=== PATIENT | female | born 1995 | race American Indian/Alaskan Native ===

== ENCOUNTER 2017-08-16 13:04 | Emergency (ER) | payer MEDICAID ==
[2017-08-16 13:35] VITALS: BP 115/76; PULSE 91; RESP 20; TEMP 99.5; O2SAT 100
--- NOTE | 2017-08-16 13:44 | C.PDOC ---
History Of Present Illness 22-year-old female, presents to the emergency department c/o sore throat and subjective fever, sore throat since last night. Patient states tonsils are swollen. She denies any medical Hx or allergies. She notes associated dizziness. Denies headache, shortness of breath, chest pain. No other complaints at this time. Time Seen by Provider: 08/16/17 13:38 Chief Complaint (Nursing): ENT Problem History Per: Patient History/Exam Limitations: no limitations Past Medical History Reviewed: Historical Data, Nursing Documentation, Vital Signs Vital Signs: Last Vital Signs Temp 99.5 F 08/16/17 13:33 Pulse 91 H 08/16/17 13:33 Resp 20 08/16/17 13:33 BP 115/76 08/16/17 13:33 Pulse Ox 100 08/16/17 13:56 - Medical History PMH: Asthma Family History: States: No Known Family Hx - Social History Hx Alcohol Use: No Hx Substance Use: No Review Of Systems Constitutional: Positive for: Fever ENT: Positive for: Throat Pain Cardiovascular: Negative for: Chest Pain, Palpitations Respiratory: Negative for: Shortness of Breath Gastrointestinal: Negative for: Vomiting Neurological: Negative for: Weakness, Numbness, Headache, Dizziness Physical Exam - Physical Exam Appears: Non-toxic, No Acute Distress Skin: Warm, Dry, No Rash Head: Atraumatic, Normacephalic Eye(s): bilateral: Normal Inspection, PERRL Oral Mucosa: Moist Tongue: No Swelling, No Lesions Lips: No Swelling Throat: Exudate (tonsils are edematous, symmetric. ), No Drooling (handling secrections well), Other (uvula midline, no trismus) Neck: Normal ROM, Supple Chest: Symmetrical Cardiovascular: Rhythm Regular, No Murmur Respiratory: Normal Breath Sounds, No Accessory Muscle Use Extremity: Normal ROM Neurological/Psych: Oriented x3, Normal Speech ED Course And Treatment O2 Sat by Pulse Oximetry: 100 (on RA) Pulse Ox Interpretation: Normal Disposition - Disposition Disposition: HOME/ ROUTINE Disposition Time: 14:21 Condition: STABLE Forms: [facility] (Cape Verdean) - Clinical Impression Clinical Impression: Strep pharyngitis - Scribe Statement The provider has reviewed the documentation as recorded by the Scribe (Delaney Yo) All medical record entries made by the Scribe were at my direction and personally dictated by me. I have reviewed the chart and agree that the record accurately reflects my personal performance of the history, physical exam, medical decision making, and the department course for this patient. I have also personally directed, reviewed, and agree with the discharge instructions and disposition.
[2017-08-16] MEDS ORDERED: Dexamethasone 4 mg/1 ml ONE (13:59)
== END 2017-08-16 14:31 | disposition home or self-care (01) ==
LOC: C.ER 13:04
DX: J02.0 Streptococcal pharyngitis (principal)
CPT/HCPCS: 87430; 96372; 99282; J1100; J1885

== ENCOUNTER 2017-10-05 17:16 | Emergency (ER) | payer MEDICAID ==
[2017-10-05 17:24] VITALS: BP 131/75; PULSE 76; RESP 18; TEMP 98.3; O2SAT 99; BMI 19.3
--- NOTE | 2017-10-05 17:38 | C.PDOC ---
History Of Present Illness Patient is a 22 year old AA with no past medical history who presents to the ED with throat pain that has been on-going for a week. Patient states she was treated sore throat last month. Patient admits to odynophagia but denies fever, chills, nausea, vomiting, cough, chest pain, palpitation, SOB. (Leander Gutierrez) History Per: Patient History/Exam Limitations: no limitations Onset/Duration Of Symptoms: Days Severity: Mild Pain Scale Rating Of: 4 Location: throat Recent travel outside of the [place]: No Additional History Per: Patient Time Seen by Provider: 10/05/17 17:19 Chief Complaint (Nursing): ENT Problem Past Medical History - Medical History PMH: Asthma Family History: States: Unknown Family Hx - Social History Hx Tobacco Use: No Hx Alcohol Use: No Hx Substance Use: No - Immunization History Hx Tetanus Toxoid Vaccination: No Hx Influenza Vaccination: No Hx Pneumococcal Vaccination: No Vital Signs: Last Vital Signs Temp 98.3 F 10/05/17 17:23 Pulse 76 10/05/17 17:23 Resp 18 10/05/17 17:23 BP 131/75 10/05/17 17:23 Pulse Ox 99 10/05/17 18:26 Review Of Systems Constitutional: Negative for: Fever, Chills, Weakness Eyes: Negative for: Pain ENT: Positive for: Throat Swelling. Negative for: Ear Pain, Ear Discharge, Nose Pain, Nose Discharge, Nose Congestion Cardiovascular: Negative for: Chest Pain, Palpitations, Light Headedness Respiratory: Negative for: Cough, Shortness of Breath, Hemoptysis, SOB with Excertion, Pleuritic Pain, Wheezing Gastrointestinal: Negative for: Nausea, Vomiting Musculoskeletal: Negative for: Neck Pain Skin: Negative for: Rash Neurological: Negative for: Headache Physical Exam - Physical Exam Appears: No Acute Distress Skin: Normal Color Head: Atraumatic, Normacephalic Eye(s): bilateral: Normal Inspection, PERRL, EOMI Ear(s): Bilateral: Normal Nose: Normal, No Flaring, No Discharge, No Epistaxis, No Deformity, No Tenderness Oral Mucosa: Moist, No Drooling Tongue: Normal Appearing, No Swelling, No Laceration, No Bleeding Lips: Normal Appearing, No Laceration, No Lesions Teeth: Normal Dentition Throat: Erythema, Exudate, No Drooling Neck: Normal ROM, No Midline Cervical Tenderness, No Paracervical Tenderness Lymphatic: Normal Exam Cardiovascular: Rhythm Regular, No Murmur Respiratory: Normal Breath Sounds, No Decreased Breath Sounds, No Accessory Muscle Use, No Rales, No Rhonchi, No Stridor, No Wheezing Gastrointestinal/Abdominal: Normal Exam, Bowel Sounds, Soft, No Tenderness, No Organomegaly, No Mass Extremity: No Tenderness, No Pedal Edema, No Calf Tenderness Neurological/Psych: Oriented x3, Normal Speech ED Course And Treatment O2 Sat by Pulse Oximetry: 99 Medical Decision Making Medical Decision Making: Rapid Strep Antigen: Negative, f/u Throat culture (Leander Gutierrez) 22 yo femae with sore throat x 1 week. no cough. high clinical suspcition for strep despite neg rapid. will treat. (+)exudative pharynx no hot potato voice, neck supple, no drooling, no unilateral swelling. will treat with decadron empiric antibiotics adviseoutpt fu (Emmett Rios) Disposition Discussed With Dr.: Emmett Rios - Disposition Disposition Time: 18:24 - Disposition Referrals: [facility] [Outside] [facility] [Outside] [facility] [Outside] Disposition: HOME/ ROUTINE Condition: GOOD Additional Instructions: Please discharge patient home Please take azithromycin ( Z-pac) for 5 days: 1. Please 2 tablets on day 1 2. Please take 1 tablets day 2, day3, day 4 Please continue to hydrate Please follow up with [facility], Please take care Prescriptions: Azithromycin [Z-Cornel] 250 mg PO DAILY #6 tab Instructions: Sore Throat in Adults Forms: [facility] (Hebrew) - Clinical Impression Clinical Impression: Sore throat
== END 2017-10-05 18:30 | disposition home or self-care (01) ==
LOC: C.ER 17:16
DX: J02.9 Acute pharyngitis, unspecified (principal)
CPT/HCPCS: 87070; 87430; 99283; J8540

== ENCOUNTER 2017-11-11 19:23 | Emergency (ER) | payer MEDICAID ==
[2017-11-11 19:23] VITALS: BMI 19.3
[2017-11-11 19:53] VITALS: BP 135/77; PULSE 80; RESP 14; TEMP 97.7; O2SAT 100
[2017-11-11] MEDS ORDERED: Alum-Mag Hydrox-Simethicone Susp (30 mL) PO STA (19:55)
--- NOTE | 2017-11-11 19:55 | C.PDOC ---
History Of Present Illness 22 year old female presents to the ED complaining of occasional sternal chest discomfort for the past 2 days. Pain is described as positional. Patient denies any SOB, palpitations, dizziness, nausea, vomiting, or diaphoresis. Of note, she works cleaning airplanes. Time Seen by Provider: 11/11/17 19:46 Chief Complaint (Nursing): Chest Pain History Per: Patient History/Exam Limitations: no limitations Onset/Duration Of Symptoms: Days (x2) Current Symptoms Are (Timing): Still Present Past Medical History Reviewed: Historical Data, Nursing Documentation, Vital Signs Vital Signs: Last Vital Signs Temp 97.7 F 11/11/17 19:39 Pulse 80 11/11/17 19:39 Resp 14 11/11/17 19:39 BP 135/77 11/11/17 19:39 Pulse Ox 100 11/11/17 19:55 - Medical History PMH: Asthma Surgical History: No Surg Hx Family History: States: Unknown Family Hx - Social History Hx Tobacco Use: No Hx Alcohol Use: No Hx Substance Use: No - Immunization History Hx Tetanus Toxoid Vaccination: No Hx Influenza Vaccination: No Hx Pneumococcal Vaccination: No Review Of Systems Except As Marked, All Systems Reviewed And Found Negative. Constitutional: Negative for: Sweats Cardiovascular: Positive for: Chest Pain. Negative for: Palpitations Respiratory: Negative for: Shortness of Breath Gastrointestinal: Negative for: Nausea, Vomiting Neurological: Negative for: Dizziness Physical Exam - Physical Exam Appears: No Acute Distress, Other (black female) Skin: Normal Color, Warm, Dry Head: Atraumatic, Normacephalic Eye(s): bilateral: PERRL, EOMI, Other (Pinpoint pupils) Nose: Normal Oral Mucosa: Moist Neck: Normal ROM, Supple Chest: Symmetrical, No Tenderness (or digitally reproducible pain) Cardiovascular: Rhythm Regular, Murmur Respiratory: Normal Breath Sounds, No Rales, No Rhonchi, No Wheezing Gastrointestinal/Abdominal: Soft, No Tenderness, No Distention Extremity: Normal ROM, No Calf Tenderness, No Swelling Pulses: Left Dorsalis Pedis: Normal, Right Dorsalis Pedis: Normal Neurological/Psych: Oriented x3, Normal Speech ED Course And Treatment ECG: Interpreted By Me ECG Rhythm: Sinus Rhythm ECG Interpretation: Normal Rate From EC O2 Sat by Pulse Oximetry: 100 (RA) Pulse Ox Interpretation: Normal Medical Decision Making Medical Decision Making: Impression: GERD vs costochondritis (cleaning planes in awkward reaching positions, which provokes discomfort) pinpoint pupils, asking for work note prior to eval. Pt given maalox plus 30 ml in the ED EKG is normal. Pt is stable for d/c home Disposition Doctor Will See Patient In The: Office Counseled Patient/Family Regarding: Studies Performed, Diagnosis, Need For Followup - Disposition Referrals: [facility] [Outside] Disposition: HOME/ ROUTINE Disposition Time: 19:54 Condition: GOOD Additional Instructions: GERD: pepcid 20 mg at night for suspected GERD maalox 30 cc/one tablespoon 4-5x/day as needed Costochondritis: muscular discomfort, will resolve spontaneously EKG normal. Instructions: Costochondritis, Acid Reflux (Gastroesophageal Reflux Disease), Adult (DC) Forms: [facility] (Thai), Work Excuse - POA Present On Arrival: None - Clinical Impression Clinical Impression: Chest discomfort - Scribe Statement The provider has reviewed the documentation as recorded by the Scribe (Kristie Stern) Provider Attestation: All medical record entries made by the Scribe were at my direction and personally dictated by me. I have reviewed the chart and agree that the record accurately reflects my personal performance of the history, physical exam, medical decision making, and the department course for this patient. I have also personally directed, reviewed, and agree with the discharge instructions and disposition.
[2017-11-11] MEDS ORDERED: Aluminum Hydroxide/Magnesium Hydroxide Susp (30 mL) ONE (19:59)
--- NOTE | 2017-11-15 23:02 | CARD ---
APPROVED REPORT EKG Measurement Heart [id number] <Conclusion> Normal sinus rhythm Septal infarct, age undetermined Abnormal ECG
== END 2017-11-11 20:02 | disposition home or self-care (01) ==
LOC: C.ER 19:23
DX: R07.89 Other chest pain (principal)

== ENCOUNTER 2018-12-11 22:12 | Emergency (ER) | payer MEDICAID ==
[2018-12-11 22:12] VITALS: BMI 19.3
[2018-12-11 22:30] VITALS: BP 137/75; PULSE 83; RESP 20; TEMP 98.4; O2SAT 97
--- NOTE | 2018-12-11 22:39 | C.PDOC ---
History Of Present Illness 23 year old female states 4 days ago she was horse playing with her friend and was slammed on her left hip area. She has been walking on it since then but states the area is painful and sore so she came in to get evaluated. Denies other injury or head injury. Patient took 600 ibuprofen TOUR AGENT. Time Seen by Provider: 12/11/18 22:34 Chief Complaint (Nursing): Lower Extremity Problem/Injury History Per: Patient History/Exam Limitations: no limitations Onset/Duration Of Symptoms: Days (4) Current Symptoms Are (Timing): Still Present Recent travel outside of the [place] States: No - Hip Description Of Injury: Other (Slammed by friend) Past Medical History Reviewed: Historical Data, Nursing Documentation, Vital Signs Vital Signs: Last Vital Signs Temp 98.4 F 12/11/18 22:27 Pulse 83 12/11/18 22:27 Resp 20 12/11/18 22:27 BP 137/75 12/11/18 22:27 Pulse Ox 97 12/11/18 22:27 Primary Care Provider: Brittney Obrien Medical History PMH: Asthma Family History: States: No Known Family Hx - Social History Hx Tobacco Use: No Hx Alcohol Use: No Hx Substance Use: No - Immunization History Hx Tetanus Toxoid Vaccination: No Hx Influenza Vaccination: No Hx Pneumococcal Vaccination: No Review Of Systems Musculoskeletal: Positive for: Other (Left hip pain). Negative for: Back Pain Skin: Negative for: Bruising Neurological: Negative for: Weakness, Numbness Physical Exam - Physical Exam Appears: Well, Non-toxic, No Acute Distress Skin: Normal Color, Warm Head: Atraumatic, Normacephalic Back: No Vertebral Tenderness, No Paraspinal Tenderness Extremity: Normal ROM (x4), Tenderness (left hip area tender, with mild ecchymosis, full rom to hips), No Deformity, No Swelling, Other (Full ROM of left hip joint. Left leg not shortened or externally rotated.) Neurological/Psych: Oriented x3, Normal Speech, Normal Motor, Normal Sensation Gait: Other (Ambulating upright steady gait with limp) ED Course And Treatment O2 Sat by Pulse Oximetry: 97 (Room air) Pulse Ox Interpretation: Normal Medical Decision Making Medical Decision Making: Motrin and tramadol given, patient ambulating with upright steady gait, stable for dc to follow up with primary. Disposition Counseled Patient/Family Regarding: Diagnosis, Need For Followup, Rx Given - Disposition Disposition: HOME/ ROUTINE Disposition Time: 22:58 Condition: STABLE Prescriptions: Ibuprofen [Motrin Tab] 600 mg PO TID #21 tab Instructions: Contusion (DC) Forms: [facility] (Israeli), General Discharge Instructions - Clinical Impression Clinical Impression: Contusion of hip, left - PA / BLADDER BLOWER / Resident Statement MD/DO has reviewed & agrees with the documentation as recorded. - Scribe Statement The provider has reviewed the documentation as recorded by the Scribjuan pablo Wiseman All medical record entries made by the Srikanth were at my direction and personally dictated by me. I have reviewed the chart and agree that the record accurately reflects my personal performance of the history, physical exam, medical decision making, and the department course for this patient. I have also personally directed, reviewed, and agree with the discharge instructions and disposition.
== END 2018-12-11 23:50 | disposition home or self-care (01) ==
LOC: C.ER 22:12
DX: S70.02XA Contusion of left hip, initial encounter (principal); X58.XXXA Exposure to other specified factors, initial encounter; Y93.83 Activity, rough housing and horseplay